=== PATIENT | female | born 1960 | race Caucasian/White ===

== ENCOUNTER 2016-09-07 07:52 | Emergency (ER) | payer SELFPAY ==
[2016-09-07] MEDS ORDERED: HYDROcodone/ACETAMINOPHEN 1 EACH TABLET PO ONE (08:40)
[2016-09-07] MEDS ORDERED: HYDROcodone/ACETAMINOPHEN 1 EACH TABLET ONE (08:43)
[2016-09-07 09:21] VITALS: BP 141/81
--- NOTE | 2016-09-07 09:46 | ERNOTE ---
Trauma/Assault HPI - Narrative Date of Service: 09/07/16 - General Stated Complaint: FALL 09/05/16. LT SIDE PAIN. Time Seen by Provider: 09/07/16 08:30 Source: patient, family Exam Limitations: no limitations - Immun/Allergies/Home Medications Allergies/Adverse Reactions: Allergies morphine Allergy (Verified 09/07/16 08:03) Home Medications: HOME MEDICATIONS HYDROcodone/ACETAMINOPHEN [[place] 5-325] 1 - 2 tab PO QID PRN #30 tab 09/07/16 [ Last Taken Unknown] - History of Present Illness Narrative: 3 days ago, slipped on her deck at home, fell, and injured her left anterolateral torso, right about at the level of her most inferior ribs. Pain since. Moderately severe. swelling over the area. no actual back or cva pain. Location Occurred: Reports: home Pain Location: Reports: other - torso Method of Injury: Reports: fall Severity: moderate Modifying Factors - (Improves): Reports: rest Modifying Factors - (Worsens): Reports: jarring, movement Loss of Consciousness: Reports: no loss of consciousness, remembers the event Associated Symptoms - Trauma: Reports: denies symptoms Review of Systems - Review of Systems Constitutional: Present: no symptoms reported EYE: Present: no symptoms reported ENT: Present: no symptoms reported Respiratory: Present: no symptoms reported Cardiology: Present: no symptoms reported Gastrointestinal/Abdominal: Present: no symptoms reported Genitourinary: Present: no symptoms reported Musculoskeletal: Present: See HPI Skin: Present: no symptoms reported Neurological: Present: no symptoms reported Endocrine: Present: no symptoms reported Hematologic/Lymphatic: Present: no symptoms reported Psych: Present: no symptoms reported All Other Systems: All systems neg except as marked - Patient's Past Medical History Patient History - Medical: No pertinent hx Patient History - Cardiac/Respiratory: No pertinent hx Patient History - Cancer: No Hx of Cancer Patient History - Surgical Procedures: D & C - Social History Living Situations: home Smoking Status: Current every day smoker Alcohol Use: occasionally Physical Exam - Physical Exam General Appearance: Present: wd/wn, alert, no apparent distress Eye Exam: Normal inspection: bilateral, PERRL: bilateral, EOMI: bilateral Ears, Nose, Throat: Present: normal ENT inspection, hearing grossly normal Neck: Present: normal inspection, nontender Respiratory: Present: no respiratory distress, normal breath sounds, lungs clear Cardiovascular/Chest: Present: regular rate, rhythm, no murmur Gastrointestinal/Abdominal: Present: normal bowel sounds, nontender, nondistended, soft, no organomegaly Back Exam: Present: normal inspection, no CVA tenderness, no vertebral tenderness, other - tender over anterolateral left lower ribs and muscles attached to ribs. No deep tenderness. All superficial. Extremity Exam: Present: normal inspection, no edema Neurological Exam: Present: alert, oriented, normal mood/affect, no motor/ sensory deficits Skin Exam: Present: normal color, warm/dry ED Progress - Vital Signs Patient's Vital Signs:: I have reviewed the patient's vital signs. Vital Signs: Vital Signs 09/07/16 09/07/16 07:58 09:04 Temperature 36.5 C Pulse Rate 104 H 84 Respiratory 12 12 Rate Blood Pressure 161/73 141/81 O2 Sat by Pulse 96 97 Oximetry - X-Ray X-Ray #1 X-Ray: ribs Interpretation: Interp. by me - no fracture - Progress/Reassessment Chief Complaint: Fall Departure Clinical Impression: Muscle strain of chest wall Qualifiers: Encounter type: initial encounter Qualified Code(s): S29.011A - Strain of muscle and tendon of front wall of thorax, initial encounter - Departure Disposition: Home self-care Condition: Good Instructions: Muscle Strain, [id number] Additional Instructions: Heat as able. Followup with your doctor this week. Prescriptions: HYDROcodone/ACETAMINOPHEN [[place] 5-325] 1 - 2 tab PO QID PRN #30 tab PRN Reason: Pain
== END 2016-09-07 09:55 | disposition home or self-care (01) ==
LOC: ER 07:52
DX: S29.011A Strain of muscle and tendon of front wall of thorax, initial encounter (principal); F17.210 Nicotine dependence, cigarettes, uncomplicated; W01.0XXA Fall on same level from slipping, tripping and stumbling without subsequent striking against object, initial encounter

== ENCOUNTER 2017-02-09 12:04 | Emergency (ER) | payer SELFPAY ==
[2017-02-09] MEDS ORDERED: DIAZEPAM 5 MG/ML SYRG IM ONE (12:34)
[2017-02-09] MEDS ORDERED: KETOROLAC TROMETHAMINE 60 MG/2 ML VIAL IM ONE ×2 (12:34→12:42)
[2017-02-09] MEDS ORDERED: DIAZEPAM 5 MG/ML SYRG ONE (12:42)
--- OUTSIDE RECORDS SUMMARY | 2017-02-09 12:54 | XMS REPORT | Continuity of Care Document ---
:1960 Author Organization [facility] ([facility]) [place] [address] Phone [phone] Care Team Providers Name Role Phone Unavailable Primary Care Provider Unavailable Source Comments This disclosure is being made pursuant to the Care Everywhere program, applicable federal and state laws, and may not contain all informaitonavailable regarding this patient.[facility] ([facility]) Active Allergies and Adverse Reactions Not on File Current Medications Not on file Active Problems Not on file Social History Tobacco Use Types Packs/Day Years Used Date Never Assessed Plan of Care Health Maintenance Due Date Last Done Comments HCV Screening 1960 Hepatitis B Vaccine (1 of 3 - Primary Series) 1960 Tdap Vaccine 1973 Lipid Disorder Screening 1980 MMR Vaccine 1980 Td Vaccine 1980 Cervical Cancer Screening 07/25/2001 07/25/1998 Mammogram 2002 Colonoscopy 06/21/2012 Influenza Vaccine: Seasonal (#1) 04/07/2016 Results from Last 3 Months Not on file
--- NOTE | 2017-02-09 13:14 | ERNOTE ---
Back Pain ER HPI Date of Service: 02/09/17 Presenting Symptoms: injury/pain to back Time Seen by Provider: 02/09/17 12:26 Source: patient, RN notes reviewed Exam Limitations: no limitations Immunizations: IMMUNIZATION HX Immunizations Up to Date Yes History of Influenza Vaccine No Allergies/Adverse Reactions: Allergies morphine Allergy (Severe, Verified 02/09/17 12:22) Anaphylaxis Home Medications: HOME MEDICATIONS NK [No Home Medication] 02/09/17 [Last Taken Unknown] - Pain Score Pain Score #1 Pain Score: 10 Narrative: Gay is a 56-year-old female brought to the emergency Department by private vehicle for bilateral low back pain that began 2 days ago. She reports not having problems with back pain in the past. She denies any nausea, vomiting, fever or urinary symptoms. The pain radiates around into her lower abdomen laterally. She states that it feels like menstrual cramps. She also reports that her back feels swollen and her abdomen is bloated. Date (Duration): 02/07/17 Timing: Reports: getting worse Quality/Severity: Reports: severe, aching Location of pain: Reports: lower back Activities at Onset: Reports: none Recent Injury?: Reports: no Associated Symptoms: Denies: fever/chills, constipation/incontinence, nausea/ vomiting, problems urinating, difficulty walking, numbess/weakness in legs Prior Treament: Denies: recently seen, similar symptoms before Review of Systems - Review of Systems Constitutional: Absent: recent illness, fever, chills EYE: Present: no symptoms reported ENT: Present: no symptoms reported Respiratory: Absent: shortness of breath, cough Cardiology: Absent: chest pain, syncope Gastrointestinal/Abdominal: Present: abdominal pain. Absent: nausea, vomiting, diarrhea, constipation Genitourinary: Absent: frequency, dysuria, hematuria, decreased urinary output Musculoskeletal: Present: back pain. Absent: neck pain, joint pain Skin: Absent: rash, lesions, lumps, change in color Neurological: Absent: headache, dizziness/light-headedness Endocrine: Present: no symptoms reported Hematologic/Lymphatic: Present: no symptoms reported Psych: Present: no symptoms reported - Patient's Past Medical History Patient History - Medical: No pertinent hx Patient History - Cardiac/Respiratory: No pertinent hx Patient History - Cancer: No Hx of Cancer Patient History - Surgical Procedures: D & C Patient History - Other: None LMP (Calendar): 08/07/16 - states she is menopausal - Social History Living Situations: home Psych History: No pertinent hx Smoking Status: Current every day smoker Cigarettes Packs Per Day: 1 Have you smoked in the past 12 months: Yes Alcohol Use: occasionally Drug Use: none - Immunizations Immunizations Up to Date: Yes History of Influenza Vaccine: No Physical Exam - Physical Exam General Appearance: Present: wd/wn, alert, mild distress, other - appears very uncomfortable Neck: Present: normal inspection, nontender, supple, full range of motion Respiratory: Present: no respiratory distress, normal breath sounds, no accessory muscle use, lungs clear Cardiovascular/Chest: Present: regular rate, rhythm, no murmur, normal peripheral pulses Gastrointestinal/Abdominal: Present: soft, tenderness - lower abdomen bilaterally, abnormal bowel sounds - hyperactive throughout, distended. Absent : guarding, rebound Back Exam: Present: no CVA tenderness, no vertebral tenderness, other - paraspinal lumbar region muscle tenderness with palpation Extremity Exam: Present: normal inspection, normal range of motion, no edema Neurological Exam: Present: alert, oriented, normal mood/affect, no motor/ sensory deficits Skin Exam: Present: normal color, warm/dry ED Progress - Results and Orders Patient's Lab Results:: I have reviewed the patient's lab results. - Vital Signs Patient's Vital Signs:: I have reviewed the patient's vital signs. Vital Signs: Vital Signs 02/09/17 12:17 Temperature 36.2 C L Pulse Rate 84 Respiratory 16 Rate Blood Pressure 115/62 O2 Sat by Pulse 98 Oximetry - X-Ray X-Ray #1 X-Ray: abdomen Interpretation: Reviewed by me X-ray Comments: Technique: Supine and upright views of the abdomen obtained. A total of 4 images utilized. Comparison: None. Findings: There is mild stool seen throughout the colon. There is some increased small bowel gas but with no air-filled dilated loops of bowel suggest obstruction. There is a calcification in the right upper quadrant that may be intrarenal calcification or could be a gallstone. There are vascular calcifications. There is no free air identified. IMPRESSION: MILD RETAINED STOOL. Electronically signed by Fer Ramon M.D.. - Progress/Reassessment Chief Complaint: Back Pain Progress:: Improved Plan - Plan Plan: Pain improved with Toradol and Valium. Lab results unremarkable for any acute process. Urine culture is pending - small amount of bacteria in urine but patient is asymptomatic so will defer antibiotic treatment pending culture results. Xray shows a significant amount of retained stool. D/C'd home with magnesium citrate. Discussed f/u if symptoms do not improve or if she gets worse , patient agreeable to plan. Departure Clinical Impression: Acute constipation - Departure Disposition: Home self-care Condition: Good Instructions: Constipation, Adult, [id number] Additional Instructions: Drink entire bottle of magnesium citrate followed by 2 large glasses of liquid Return for worsening symptoms
[2017-02-09 13:27] LABS: Urine Bilirubin Negative (NEGATIVE); Urine Blood Negative /ul (NEGATIVE); Urine Ketone Negative (NEGATIVE); Urine Nitrite Negative (NEGATIVE); Urine Protein Negative (NEGATIVE); Urine Specific Gravity 1.025 SP.GR. (1.005-1.010); Urine Urobilinogen Normal (NORMAL); Urine pH 5.5 pH (5.0-7.0)
[2017-02-09 13:35] LABS: Urine Appearance Slightly Cloudy; Urine Bacteria 1+; Urine Color Yellow; Urine RBC None Seen /hpf (0-5)
[2017-02-09 13:50] LABS: Hematocrit 41.9 % (37.0-47.0); Hemoglobin 13.4 gm/dL (12.5-16.0); Mean Cell Volume 77.9 fl (78-100); Mean Corpuscular Hemoglobin 24.9 pg (27-31); Mean Platelet Volume 10.1 fl (6.0-9.5); Neutrophil # 3.1 K/mm3 (1.3-6.0); Neutrophil % 51.6 % (42-75.0); Platelet Count 241 K/mm3 (150-450); Red Blood Count 5.38 M/mm3 (4.2-5.4); Red Cell Distribution Width 15.1 % (11.5-14.0); White Blood Count 5.9 K/mm3 (4.0-10.5)
[2017-02-09 14:12] LABS: Albumin * 3.2 gm/dl (3.4-5.0); Anion Gap 12.5 mmol/L (6.8-13.8); BUN/Creatinine Ratio 22.9 (9.0-21.6); Bilirubin, Total 0.1 mg/dL (0.0-1.1); Ca. Corrected For Albumin 9.6 mg/dL (8.4-10.2); Calcium * 9.3 mg/dL (7.9-10.9); Carbon Dioxide 24.8 mmol/L (24-32.6); Potassium 4.3 mmol/L (3.4-4.6); Total Protein 6.9 gm/dL (6.2-8.2)
[2017-02-09] MEDS ORDERED: MAGNESIUM CITRATE 300 ML BTL PO ONE (15:19)
[2017-02-09] MEDS ORDERED: MAGNESIUM CITRATE 300 ML BTL ONE (15:22)
[2017-02-09 15:25] VITALS: BP 110/62
== END 2017-02-09 13:22 | disposition home or self-care (01) ==
LOC: ER 12:04
DX: K59.00 Constipation, unspecified (principal); Z72.0 Tobacco use